=== PATIENT | male | born 1995 | race Caucasian/White ===

== ENCOUNTER 2017-05-15 17:48 | Emergency (ER) | payer MEDICAID ==
[~2017-05-15] VITALS: Ht 177.8 cm; Wt 78.0 kg
[2017-05-15 19:21] VITALS: BP 131/86; Ht 177.8 cm; Wt 78.0 kg
== END 2017-05-15 20:30 | disposition home or self-care (01) ==
LOC: ED 17:48
DX: Z76.0 Encounter for issue of repeat prescription (principal); F41.9 Anxiety disorder, unspecified; F32.9 Major depressive disorder, single episode, unspecified

== ENCOUNTER 2018-03-10 16:37 | Emergency (ER) | payer MEDICAID ==
[~2018-03-10] VITALS: Ht 180.3 cm; Wt 75.7 kg
[2018-03-10 17:00] VITALS: BP 127/81; Ht 180.3 cm; Wt 75.7 kg
== END 2018-03-10 19:27 | disposition home or self-care (01) ==
LOC: ED 16:37
DX: J20.8 Acute bronchitis due to other specified organisms (principal); J45.909 Unspecified asthma, uncomplicated; F41.9 Anxiety disorder, unspecified; F32.9 Major depressive disorder, single episode, unspecified
CPT/HCPCS: Q0092

== ENCOUNTER 2018-06-29 12:09 | Emergency (ER) | payer MEDICAID ==
[~2018-06-29] VITALS: Ht 177.8 cm; Wt 78.0 kg
[2018-06-29 12:23] VITALS: Ht 177.8 cm; Wt 78.0 kg
[2018-06-29 14:34] VITALS: BP 127/71
== END 2018-06-29 14:34 | disposition home or self-care (01) ==
LOC: ED 12:09
DX: J02.9 Acute pharyngitis, unspecified (principal); J30.9 Allergic rhinitis, unspecified; F41.9 Anxiety disorder, unspecified; F32.9 Major depressive disorder, single episode, unspecified